=== PATIENT | male | born 1950 | race Caucasian/White ===

== ENCOUNTER 2017-06-01 10:20 | Day surgery (SDC) | payer OTHER ==
[2017-05-30 13:20] VITALS: BMI 31.9
[~2017-06-01 10:20] MED LIST: LACTATED RINGERS 1,000 ML IV SCH; LIDOCAINE 1% 20 ML VIAL (10MG/ML) FOR IV START INTRADERMA PRN
[2017-06-01 11:00] VITALS: RESP 16
[2017-06-01] MEDS ORDERED: LIDOCAINE 1% INJ 10MG/ML (20 ML MDV) ONE (12:18)
[2017-06-01] MEDS ORDERED: PROPOFOL 10 MG/ML 20 ML VIAL IV ONE (12:18)
--- NOTE | 2017-06-01 13:04 | P.PCN ---
Date of Procedure: 06/01/17 Procedure(s) Performed: Procedure: Colonoscopy and biopsy. Preoperative diagnosis: Screening for neoplasia. Postoperative diagnosis: Prominent IC valve, biopsied, otherwise, exam to the cecum within normal limits. Preparation: HalfLytely prep. Sedation: Was provided by anesthesia. Brief clinical history: The patient is 67-year-old male who is scheduled for this evaluation for screening for neoplasia because of history of polyps. The patient had several colonoscopies at the [facility], the last 2 of those were 1 year apart as the patient had polyps that were removed and their location was tattooed and were followed up yearly at the [facility]. The patient was advised a repeat colonoscopy which I performed March 2015 to follow-up on those areas and I found a polyp around the hepatic flexure which was snared. This evaluation is to follow-up because of his history of polyps. He has no abdominal complaints, bleeding or anemia. Procedure: With the patient on his left lateral decubitus position and after informed consent and adequate sedation, the perianal area was inspected and it did not show any fissures or fistulas. There were no masses felt on digital rectal examination. The Olympus CFQ 160L video colonoscope was then inserted in the rectum in the usual fashion and advanced to the cecum. The areas that were spotted before were noted in the distal sigmoid and the rectum and there was no residual polyps in those areas. Around the hepatic flexure there was no residual polyps. The mucosa appeared healthy. The ileocecal valve was somewhat prominent which I biopsied. I retroflexed endoscope in the rectum before the endoscope was withdrawn. Low-grade internal hemorrhoids were noted but those were not bleeding at the time of this exam. Disposition: The patient tolerated the procedure well. Plan: The patient was reassured. He will follow up with you as planned and I am recommending repeat colonoscopy in 5 years.
[2017-06-01 13:55] VITALS: BP 150/79; PULSE 54
== END 2017-06-01 14:03 | disposition home or self-care (01) ==
LOC: ORWHC2ENDO 10:20
DX: Z12.11 Encounter for screening for malignant neoplasm of colon (principal); K64.8 Other hemorrhoids; I10 Essential (primary) hypertension; E78.5 Hyperlipidemia, unspecified; F17.200 Nicotine dependence, unspecified, uncomplicated; K21.9 Gastro-esophageal reflux disease without esophagitis; M10.9 Gout, unspecified; Z86.010 Personal history of colon polyps; Z79.899 Other long term (current) drug therapy
CPT/HCPCS: 88305; 45380; J2001; J2704

== ENCOUNTER 2022-12-13 15:25 | Inpatient (IN) | payer OTHER, MEDICARE ==
[2022-12-13] MEDS ORDERED: HYDROmorphone 1 MG/ML 1 ML SYRINGE IVP STA (19:08)
[2022-12-13 20:08] LABS: Anisocytosis Slight; HCT 35.5 % (39.0-53.0); HGB 11.4 gm/dL (13.0-17.5); MCH 25.2 pg (25.0-35.0); MCV 78.7 fL (80.0-100.0); Mean Platelet Volume 7.9; Microcytosis Slight; Platelet Count 231 k/uL (150-450); RBC 4.51 m/uL (4.30-5.90); RDW 17.3 % (11.5-15.5); WBC 9.4 k/uL (3.8-10.6)
[2022-12-13 20:19] LABS: ALT 70 U/L (4-49); AST 165 U/L (17-59); African American GFR (CKD) 86 (>60 ml/min/1.73 sqM); Albumin 3.3 g/dL (3.5-5.0); Alkaline Phosphatase 56 U/L (38-126); Anion Gap 11 mmol/L; Blood Urea Nitrogen 43 mg/dL (9-20); Calcium 8.9 mg/dL (8.4-10.2); Carbon Dioxide 27 mmol/L (22-30); Chloride 91 mmol/L (98-107); Glucose 165 mg/dL (74-99); Lipase 182 U/L (23-300); Non-African American GFR(CKD) 75 (>60 ml/min/1.73 sqM); Potassium 4.2 mmol/L (3.5-5.1); Sodium 129 mmol/L (137-145); Total Bilirubin 0.8 mg/dL (0.2-1.3); Total Protein 6.1 g/dL (6.3-8.2)
[2022-12-13 21:13] LABS: Band Neutrophils % 10 %; Lymphocytes # (M) 0.09 k/uL (1.0-4.8); Monocytes # (M) 0.19 k/uL (0-1.0); Neutrophils % (M) 87 %; Nucleated Red Blood Cells 0 /100 WBC (0-0); Total Cells Counted 100
--- NOTE | 2022-12-13 21:47 | ED ---
General Adult HPI - General Chief complaint: Recheck/Abnormal Lab/Rx Stated complaint: Pain Time Seen by Provider: 12/13/22 16:50 Source: patient Mode of arrival: wheelchair - History of Present Illness Initial comments: 72-year-old male with past medical history of colon cancer, rheumatoid arthritis who presents to the emergency department with abdominal pain. States that he was hospitalized and discharged yesterday. He had surgery on December 05 for right colon resection due to colon cancer. He was discharged home on oxycodone for pain. States he has been taking the mediations as directed alternating with tylenol but contines to have significant pain which she feels is getting worse. He denies any fevers. He has been using a stool softener reports to soft stool. No black or bloody stool. He denies issues urinating. He did eat lunch without nausea or vomiting. He called the office who recommended that the patient be reevaluated. He denies cough, shortness of breath. No drainage from his surgical incision. No other alleviating, precipitating or modifying factors - Related Data Home Medications Medication Instructions Recorded Confirmed Metoprolol Tartrate [Lopressor] 50 mg PO BID 03/23/15 12/13/22 Naproxen [Naprosyn] 500 mg PO Q12HR PRN 05/30/17 12/13/22 Omeprazole 20 mg PO DAILY PRN 01/16/20 12/13/22 metFORMIN HCL [Glucophage] 1,000 mg PO BID 01/16/20 12/13/22 Gabapentin [Neurontin] 100 mg PO HS 12/06/22 12/13/22 Lisinopril-Hctz 20-12.5 mg 1 tab PO BID 12/06/22 12/13/22 [Zestoretic 20-12.5] Rosuvastatin Calcium 5 mg PO DAILY 12/06/22 12/13/22 Sildenafil Citrate [Viagra] 100 mg PO DAILY PRN 12/06/22 12/13/22 Vit C/E/Zn/Coppr/Lutein/Zeaxan 1 cap PO BID 12/06/22 12/13/22 [Preservision Areds 2 Softgel] allopurinoL 100 mg PO DAILY 12/06/22 12/13/22 amLODIPine [Norvasc] 10 mg PO DAILY 12/06/22 12/13/22 Previous Rx's Medication Instructions Recorded Acetaminophen Tab [Tylenol Tab] 650 mg PO Q4H PRN #30 tablet 12/12/22 oxyCODONE HCL [OxyIR] 5 mg PO Q6H PRN 3 Days #12 tab 12/12/22 Allergies Allergy/AdvReac Type Severity Reaction Status Date / Time [id number] Reductase AdvReac Muscle/joint Verified 12/13/22 19:28 Inhibitor pain. Currently taking Crestor. Review of Systems ROS Statement: Those systems with pertinent positive or pertinent negative responses have been documented in the HPI. ROS Other: All systems not noted in ROS Statement are negative. Past Medical History Past Medical History: GERD/Reflux, Hyperlipidemia, Hypertension, Rheumatoid Arthritis (RA) Additional Past Medical History / Comment(s): GOUT, HX OF COLON POLYPS. History of Any Multi-Drug Resistant Organisms: None Reported Past Surgical History: Appendectomy, Tonsillectomy Additional Past Surgical History / Comment(s): REPAIR OF FRACTURE AROUND RIGHT EYE. colon surgery 12/17 Past Anesthesia/Blood Transfusion Reactions: No Reported Reaction Past Psychological History: No Psychological Hx Reported Smoking Status: Former smoker Past Alcohol Use History: None Reported Past Drug Use History: None Reported - Past Family History Father Family Medical History: Diabetes Mellitus Brother(s) Family Medical History: Cancer Additional Family Medical History / Comment(s): STOMACH CANCER Mother Family Medical History: No Reported History General Exam General appearance: alert, in no apparent distress Head exam: Present: atraumatic, normocephalic, normal inspection Eye exam: Present: normal appearance, PERRL, EOMI. Absent: scleral icterus, conjunctival injection, periorbital swelling ENT exam: Present: normal exam, mucous membranes moist Neck exam: Present: normal inspection. Absent: tenderness, meningismus, lymphadenopathy Respiratory exam: Present: normal lung sounds bilaterally. Absent: respiratory distress, wheezes, rales, rhonchi, stridor Cardiovascular Exam: Present: regular rate, tachycardia, normal heart sounds. Absent: systolic murmur, diastolic murmur, rubs, gallop, clicks GI/Abdominal exam: Present: soft, tenderness (Generalized however only felt upon deep palpation. Midline abdominal incision is clean dry and intact. Nose running cellulitic changes. No peritoneal signs), normal bowel sounds. Absent: distended, guarding, rebound, rigid Extremities exam: Present: normal inspection, full ROM, normal capillary refill. Absent: tenderness, pedal edema, joint swelling, calf tenderness Back exam: Present: normal inspection Neurological exam: Present: alert, oriented X3, CN II-XII intact Psychiatric exam: Present: normal affect, normal mood Skin exam: Present: warm, dry, intact, normal color. Absent: rash Course Vital Signs 12/13/22 12/13/22 16:49 23:21 Temperature 98.6 F 100.2 F H Pulse Rate 120 H 118 H Respiratory 18 18 Rate Blood Pressure 106/61 130/58 O2 Sat by Pulse 96 93 L Oximetry Medical Decision Making - Medical Decision Making Was pt. sent in by a medical professional or institution (, PA, B[employer] CAR UNLOADER, urgent care, hospital, or skilled nursing...) When possible be specific @ -No Did you speak to anyone other than the patient for history (EMS, parent, family, police, friend...)? What history was obtained from this source @ -I spoke with the patient's Did you review nursing and triage notes (agree or disagree)? Why? @ -I reviewed and agree with nursing and triage notes Were old charts reviewed (outside hosp., previous admission, EMS record, old EKG, old radiological studies, urgent care reports/EKG's, skilled nursing records)? Report findings @ -I reviewed the patient's operative report from December 05. Also read discharge summary from yesterday Differential Diagnosis (chest pain, altered mental status, abdominal pain women, abdominal pain men, vaginal bleeding, weakness, fever, dyspnea, syncope, headache, dizziness, GI bleed, back pain, seizure, CVA, palpatations, mental health, musculoskeletal)? @ -Differential Abdominal Pain Men: Appendicitis, cholecystitis, diverticulosis, ischemic bowel, pancreatitis, hepatitis, UTI, gastroenteritis, AAA, incarcerated hernia, bowel obstruction, constipation, inflammatory bowel, hepatitis, peptic ulcer disease, splenic infarction, perforated viscus, testicular torsion, this is not meant to be an all-inclusive list EKG interpreted by me (3pts min.). @ -Not done X-rays interpreted by me (1pt min.). @ -None done CT interpreted by me (1pt min.). @ -None done U/S interpreted by me (1pt. min.). @ -None done What testing was considered but not performed or refused? (CT, X-rays, U/S, l abs)? Why? @ -X-ray, CT was considered. Spoke with Dr. Lenz who denied need for imaging What meds were considered but not given or refused? Why? @ -None Did you discuss the management of the patient with other professionals (professionals i.e. , PA, [employer]ER, lab, RT, psych nurse, social media campaign manager, cleaner housekeeping, teacher, intelligence officer basic, field nurse case manager)? Give summary @ -Spoke with Dr. Lenz who will admit patient for post-op evaluation Was smoking cessation discussed for >3mins.? @ -No Was critical care preformed (if so, how long)? @ -No Were there social determinants of health that impacted care today? How? ( Homelessness, low income, unemployed, alcoholism, drug addiction, transportation, low edu. Level, literacy, decrease access to med. care, prison, rehab)? @ -No Was there de-escalation of care discussed even if they declined (Discuss DNR or withdrawal of care, Hospice)? DNR status @ -No What co-morbidities impacted this encounter? (DM, HTN, Smoking, COPD, CAD, Cancer, CVA, ARF, Chemo, Hep., AIDS, mental health diagnosis, sleep apnea, morbid obesity)? @ -colon ca with recent right hemicoletomy Was patient admitted / discharged? Hospital course, mention meds given and route, prescriptions, significant lab abnormalities, going to OR and other pertinent info. @ -Upon arrival patient was placed into hallway 10. Thorough history and physical exam was performed. Patient is rating his pain as 8 out of 10. He does have some mild tenderness to palpation. IV is established and laboratory studies were conducted. He was given 1 mg of Dilaudid for pain. I discussed the case with Dr. Lenz. He does not feel that the patient needs imaging at this time. I requested to observe the patient due to his report of uncontrolled pain. Dr. Lenz was agreeable to observing the patient. Recommended fluids, pain control. Patient was agreeable to admission. He is currently awaiting a bed on the floor in stable condition After admission the patient does have some elevation in his temperature. I did add on a Covid swab, blood cultures. Admitting physician will be made aware of the change in the patient's vital signs Undiagnosed new problem with uncertain prognosis? @ -Yes Drug Therapy requiring intensive monitoring for toxicity (Heparin, Nitro, Insulin, Cardizem)? @ -No Were any procedures done? @ -No Diagnosis/symptom? @ -Acute abdominal pain, status post right hemicolectomy Acute, or Chronic, or Acute on Chronic? @ -Acute Uncomplicated (without systemic symptoms) or Complicated (systemic symptoms)? @ -complicated Side effects of treatment? @ -No Exacerbation, Progression, or Severe Exacerbation? @ -No Poses a threat to life or bodily function? How? (Chest pain, [place], [place], pneumonia, PE, COPD, DKA, ARF, appy, cholecystitis, CVA, Diverticulitis, Homicidal, Suicidal, threat to staff... and all critical care pts) @ -No - Lab Data Result diagrams: 12/13/22 19:34 12/13/22 19:34 Lab Results 12/13/22 12/13/22 12/13/22 Range/Units 19:34 19:34 19:34 WBC 9.4 (3.8-10.6) k/uL RBC 4.51 (4.30-5.90) m/uL Hgb 11.4 L (13.0-17.5) gm/dL Hct 35.5 L (39.0-53.0) % MCV 78.7 L (80.0-100.0) fL MCH 25.2 (25.0-35.0) pg MCHC 32.0 (31.0-37.0) g/dL RDW 17.3 H (11.5-15.5) % Plt Count 231 (150-450) k/uL MPV 7.9 Neutrophils % (Manual) 87 % Band Neuts % (Manual) 10 % Lymphocytes % (Manual) 1 % Monocytes % (Manual) 2 % Neutrophils # (Manual) 9.10 H (1.3-7.7) k/uL Lymphocytes # (Manual) 0.09 L (1.0-4.8) k/uL Monocytes # (Manual) 0.19 (0-1.0) k/uL Nucleated RBCs 0 (0-0) /100 WBC Manual Slide Review Performed Anisocytosis Slight Microcytosis Slight Sodium 129 L (137-145) mmol/L Potassium 4.2 (3.5-5.1) mmol/L Chloride 91 L (98-107) mmol/L Carbon Dioxide 27 (22-30) mmol/L Anion Gap 11 mmol/L BUN 43 H (9-20) mg/dL Creatinine 1.01 (0.66-1.25) mg/dL Est GFR (CKD-EPI)AfAm 86 (>60 ml/min/1.73 sqM) Est GFR (CKD-EPI)NonAf 75 (>60 ml/min/1.73 sqM) Glucose 165 H (74-99) mg/dL Lactic Ac Sepsis Rflx Plasma Lactic Acid James 2.3 H* (0.7-2.0) mmol/L Calcium 8.9 (8.4-10.2) mg/dL Total Bilirubin 0.8 (0.2-1.3) mg/dL AST 165 H (17-59) U/L ALT 70 H (4-49) U/L Alkaline Phosphatase 56 (38-126) U/L Total Protein 6.1 L (6.3-8.2) g/dL Albumin 3.3 L (3.5-5.0) g/dL Lipase 182 (23-300) U/L 12/13/22 Range/Units 20:21 WBC (3.8-10.6) k/uL RBC (4.30-5.90) m/uL Hgb (13.0-17.5) gm/dL Hct (39.0-53.0) % MCV (80.0-100.0) fL MCH (25.0-35.0) pg MCHC (31.0-37.0) g/dL RDW (11.5-15.5) % Plt Count (150-450) k/uL MPV Neutrophils % (Manual) % Band Neuts % (Manual) % Lymphocytes % (Manual) % Monocytes % (Manual) % Neutrophils # (Manual) (1.3-7.7) k/uL Lymphocytes # (Manual) (1.0-4.8) k/uL Monocytes # (Manual) (0-1.0) k/uL Nucleated RBCs (0-0) /100 WBC Manual Slide Review Anisocytosis Microcytosis Sodium (137-145) mmol/L Potassium (3.5-5.1) mmol/L Chloride (98-107) mmol/L Carbon Dioxide (22-30) mmol/L Anion Gap mmol/L BUN (9-20) mg/dL Creatinine (0.66-1.25) mg/dL Est GFR (CKD-EPI)AfAm (>60 ml/min/1.73 sqM) Est GFR (CKD-EPI)NonAf (>60 ml/min/1.73 sqM) Glucose (74-99) mg/dL Lactic Ac Sepsis Rflx Y Plasma Lactic Acid James (0.7-2.0) mmol/L Calcium (8.4-10.2) mg/dL Total Bilirubin (0.2-1.3) mg/dL AST (17-59) U/L ALT (4-49) U/L Alkaline Phosphatase (38-126) U/L Total Protein (6.3-8.2) g/dL Albumin (3.5-5.0) g/dL Lipase (23-300) U/L Disposition Clinical Impression: Abdominal pain, S/P colectomy, Lactic acidosis, Hyponatremia Disposition: ADMITTED IP TO THIS [facility] Condition: Stable Is patient prescribed a controlled substance at d/c from ED?: No Time of Disposition: 21:48 Decision to Admit Reason: Admit from EC Decision Date: 12/13/22 Decision Time: 21:48
[2022-12-13] MEDS ORDERED: NALOXONE 0.4 MG/ML 1 ML VIAL IV PRN (21:49)
[2022-12-13] MEDS ORDERED: SODIUM CHLORIDE 0.9% 500 ML 500 ML IV ONE (21:50)
[2022-12-13] MEDS: SODIUM CHLORIDE 0.9% 1,000 ML IV SCH (22:44)
[2022-12-13] MEDS: HYDROmorphone 1 MG/ML 1 ML SYRINGE IVP PRN (23:18)
[2022-12-14] MEDS ORDERED: ACETAMINOPHEN TAB 325 MG TAB PO PRN (00:36)
[2022-12-14] MEDS ORDERED: PANTOPRAZOLE 40 MG TABLET PO PRN (00:38)
[2022-12-14] MEDS: METOPROLOL TARTRATE 50 MG TAB PO SCH ×3 (01:32→21:25)
[2022-12-14] MEDS ORDERED: DILTIAZEM 5 MG/ML 5 ML VIAL IVP STA (05:57)
[2022-12-14] MEDS ORDERED: SODIUM CHLORIDE 0.9% 1,000 ML IV ONE ×5 (05:57→20:11)
[2022-12-14] MEDS ORDERED: DILTIAZEM 125 MG in SODIUM CHLORIDE 0.9% 100 ML IV SCH (06:00)
--- NOTE | 2022-12-14 07:36 | CT ---
EXAMINATION TYPE: CT abdomen pelvis wo con DATE OF EXAM: 12/14/2022 COMPARISON: None INDICATION: Post colon resection DLP: 649.8 mGycm, Automated exposure control for dose reduction was used. CONTRAST: 0 mL of Isovue 300. Study performed without Oral Contrast TECHNIQUE: Axial images were obtained from above the diaphragm to the pubic rami in the axial plane a t 5 mm thick sections. Reconstructed images are reviewed on the computer in the coronal plane. FINDINGS: Limited CT sections are obtained the lung bases. The lung bases are clear. There is a small hiatal hernia present CT ABDOMEN: Liver: Normal Spleen: Normal Pancreas: Normal Adrenal glands: The adrenal glands are normal. Gallbladder: Normal Kidneys: No masses are evident. No hydronephrosis is present. No cysts are present. No renal stone s are evident. Aorta: Vascular calcification is within the aorta. Inferior vena cava: Normal. CT PELVIS: Ascending colon resection is evident in the mid right abdomen. No stenosis is identified. A few scatt ered diverticuli are within the descending colon. There are dilated and fluid-filled small bowel loops within the abdomen compatible with obstruction. A zone of transition is not identified. The caliber of the small bowel loops does approach normal jus t inferior to the colonic anastomosis. Appendix: Not identified. This may be surgically absent. Urinary bladder: Normal. Genitourinary structures: Prostate is normal Osseous structures: No suspicious lytic or sclerotic lesions. IMPRESSION: 1. Dilated and fluid-filled small bowel loops extending to the right mid abdomen compatible with obs truction. Zone of transition is not identified although the small bowel loops approach more normal ca liber prior to the anastomosis. 2. Small hiatal hernia.
--- NOTE | 2022-12-14 08:43 | XR ---
EXAMINATION TYPE: XR chest 1V portable DATE OF EXAM: 12/14/2022 COMPARISON: 12/11/2022 INDICATION: New onset A. fib TECHNIQUE: Single frontal view of the chest is obtained. FINDINGS: The heart size is normal. The pulmonary vasculature is normal. The lungs are clear. Nasogastric tube tip is within the left upper quadrant of the abdomen. No free air within the abdomen is identified at this time. IMPRESSION: 1. No acute pulmonary process.
[2022-12-14 08:50] LABS: Glucose,Whole Blood 198 mg/dL (70-110)
[2022-12-14] MEDS ORDERED: PROCHLORPERAZINE INJ 10 MG/2 ML VIAL IVP PRN (08:53)
[2022-12-14] MEDS ORDERED: allopurinoL 100 MG TAB PO SCH (09:00)
[2022-12-14] MEDS ORDERED: amLODIPine 10 MG TAB PO SCH (09:00)
[2022-12-14] MEDS ORDERED: NON FORMULARY DRUG (Rosuvastatin Calcium [Rosuvastatin Calcium] 5 MG Tablet) PO SCH (09:00)
[2022-12-14] MEDS ORDERED: LISINOPRIL-HCTZ 20-12.5 MG 1 EACH TAB PO SCH (09:00)
--- NOTE | 2022-12-14 09:30 | P.GSHP ---
History of Present Illness H&P Date: 12/14/22 CHIEF COMPLAINT: Abdominal HISTORY OF PRESENT ILLNESS: This is a 72-year-old male who has a known history of colon cancer with a right colectomy on 12/05/22. He was discharged from the hospital 2 days ago on 12/12/2022. At that time he had been having bowel movements and flatus and pain was controlled. On Monday, the day after discharge patient reports increase in abdominal pain abdominal distention. He reports the pain does move to the back. He stopped having bowel movements. His last flatus was yesterday he believes. He's been having low-grade temps has been tachycardic. Computed tomography scan had just shown dilated small bowel loops consistent with a small bowel obstruction. Patient has NG tube placed with 300 mL of dark output. PAST MEDICAL HISTORY: GERD/Reflux, Hyperlipidemia, Hypertension, Rheumatoid Arthritis (RA), gout, colon polyps, PAST SURGICAL HISTORY: Appendectomy, right colectomy MEDICATIONS: See below ALLERGIES: See below SOCIAL HISTORY: No illicit drug use. REVIEW OF SYSTEMS: CONSTITUTIONAL: Denies fever or chills. HEENT: Denies blurred vision, vision changes, or eye pain. Denies hemoptysis CARDIOVASCULAR: Denies chest pain or pressure. RESPIRATORY: No shortness of breath. GASTROINTESTINAL: See HPI for pertinent findings HEMATOLOGIC: Denies bleeding disorders. GENITOURINARY: Denies any blood in urine or increased urinary frequency. SKIN: Denies pruitis. Denies rash. PHYSICAL EXAM: VITAL SIGNS: Reviewed GENERAL: Well-developed in no acute distress. ABDOMEN: Firm and distended. Midline incision with small area of saturation lo wer mid incisional line. Diffuse tenderness with palpation. NEUROLOGIC: Alert and oriented. Cranial nerves II through XII grossly intact. LABORATORY DATA: WBC 9.4 hgb 11.4 platelets 231 Sodium 129 potassium 4.2 creatinine 1.0 Lactic acid 2.5 IMAGING: Computed tomography scan abdomen and pelvis dilated and fluid-filled small bowel loops extending to the right mid abdomen compatible with obstruction. transition point is not identified. Small hiatal hernia. Chest x-ray no acute process ASSESSMENT: 1. High-grade Small bowel obstruction 2. History of colon cancer with recent right colectomy on 12/05/2022 3. Hyponatremia PLAN: -NG tube placed for decompression -Patient scheduled for exploratory laparotomy today with Dr. Bhesania -Keep patient nothing by mouth -Medicine service consulted for medical management -Continue IV fluids -Continue pain management and antiemetics Physician Cook Tortilla note has been reviewed by physician. Signing provider agrees with the documented findings, assessment, and plan of care. Past Medical History Past Medical History: GERD/Reflux, Hyperlipidemia, Hypertension, Rheumatoid Arthritis (RA) Additional Past Medical History / Comment(s): GOUT, HX OF COLON POLYPS. History of Any Multi-Drug Resistant Organisms: None Reported Past Surgical History: Appendectomy, Tonsillectomy Additional Past Surgical History / Comment(s): REPAIR OF FRACTURE AROUND RIGHT EYE. colon surgery 12/17 Past Anesthesia/Blood Transfusion Reactions: No Reported Reaction Past Psychological History: No Psychological Hx Reported Smoking Status: Former smoker Past Alcohol Use History: None Reported Past Drug Use History: None Reported - Past Family History Father Family Medical History: Diabetes Mellitus Brother(s) Family Medical History: Cancer Additional Family Medical History / Comment(s): STOMACH CANCER Mother Family Medical History: No Reported History Medications and Allergies Home Medications Medication Instructions Recorded Confirmed Type Metoprolol Tartrate [Lopressor] 50 mg PO BID 03/23/15 12/13/22 History Naproxen [Naprosyn] 500 mg PO Q12HR PRN 05/30/17 12/13/22 History Omeprazole 20 mg PO DAILY PRN 01/16/20 12/13/22 History metFORMIN HCL [Glucophage] 1,000 mg PO BID 01/16/20 12/13/22 History Gabapentin [Neurontin] 100 mg PO HS 12/06/22 12/13/22 History Lisinopril-Hctz 20-12.5 mg 1 tab PO BID 12/06/22 12/13/22 History [Zestoretic 20-12.5] Rosuvastatin Calcium 5 mg PO DAILY 12/06/22 12/13/22 History Sildenafil Citrate [Viagra] 100 mg PO DAILY PRN 12/06/22 12/13/22 History Vit C/E/Zn/Coppr/Lutein/Zeaxan 1 cap PO BID 12/06/22 12/13/22 History [Preservision Areds 2 Softgel] allopurinoL 100 mg PO DAILY 12/06/22 12/13/22 History amLODIPine [Norvasc] 10 mg PO DAILY 12/06/22 12/13/22 History Acetaminophen Tab [Tylenol Tab] 650 mg PO Q4H PRN #30 tablet 12/12/22 12/13/22 Rx oxyCODONE HCL [OxyIR] 5 mg PO Q6H PRN 3 Days #12 tab 12/12/22 12/13/22 Rx Allergies Allergy/AdvReac Type Severity Reaction Status Date / Time [id number] Reductase AdvReac Muscle/joint Verified 12/13/22 19:28 Inhibitor pain. Currently taking Crestor. Surgical - Exam Vital Signs Temp Pulse Resp BP Pulse Ox 98.6 F 120 H 18 106/61 96 12/13/22 16:49 12/13/22 16:49 12/13/22 16:49 12/13/22 16:49 12/13/22 16:49 Results - Labs 12/13/22 19:34 12/13/22 19:34 Abnormal Lab Results - Last 24 Hours (Table) 12/13/22 12/13/22 12/13/22 Range/Units 19:34 19:34 19:34 Hgb 11.4 L (13.0-17.5) gm/dL Hct 35.5 L (39.0-53.0) % MCV 78.7 L (80.0-100.0) fL RDW 17.3 H (11.5-15.5) % Neutrophils # (Manual) 9.10 H (1.3-7.7) k/uL Lymphocytes # (Manual) 0.09 L (1.0-4.8) k/uL Sodium 129 L (137-145) mmol/L Chloride 91 L (98-107) mmol/L BUN 43 H (9-20) mg/dL Glucose 165 H (74-99) mg/dL POC Glucose (mg/dL) (70-110) mg/dL Plasma Lactic Acid James 2.3 H* (0.7-2.0) mmol/L AST 165 H (17-59) U/L ALT 70 H (4-49) U/L Total Protein 6.1 L (6.3-8.2) g/dL Albumin 3.3 L (3.5-5.0) g/dL 12/13/22 12/14/22 12/14/22 Range/Units 22:35 02:06 08:48 Hgb (13.0-17.5) gm/dL Hct (39.0-53.0) % MCV (80.0-100.0) fL RDW (11.5-15.5) % Neutrophils # (Manual) (1.3-7.7) k/uL Lymphocytes # (Manual) (1.0-4.8) k/uL Sodium (137-145) mmol/L Chloride (98-107) mmol/L BUN (9-20) mg/dL Glucose (74-99) mg/dL POC Glucose (mg/dL) 198 H (70-110) mg/dL Plasma Lactic Acid James 2.3 H* 2.5 H* (0.7-2.0) mmol/L AST (17-59) U/L ALT (4-49) U/L Total Protein (6.3-8.2) g/dL Albumin (3.5-5.0) g/dL Diabetes panel 12/13/22 Range/Units 19:34 Sodium 129 L (137-145) mmol/L Potassium 4.2 (3.5-5.1) mmol/L Chloride 91 L (98-107) mmol/L Carbon Dioxide 27 (22-30) mmol/L BUN 43 H (9-20) mg/dL Creatinine 1.01 (0.66-1.25) mg/dL Glucose 165 H (74-99) mg/dL Calcium 8.9 (8.4-10.2) mg/dL AST 165 H (17-59) U/L ALT 70 H (4-49) U/L Alkaline Phosphatase 56 (38-126) U/L Total Protein 6.1 L (6.3-8.2) g/dL Albumin 3.3 L (3.5-5.0) g/dL Calcium panel 12/13/22 Range/Units 19:34 Calcium 8.9 (8.4-10.2) mg/dL Albumin 3.3 L (3.5-5.0) g/dL Pituitary panel 12/13/22 Range/Units 19:34 Sodium 129 L (137-145) mmol/L Potassium 4.2 (3.5-5.1) mmol/L Chloride 91 L (98-107) mmol/L Carbon Dioxide 27 (22-30) mmol/L BUN 43 H (9-20) mg/dL Creatinine 1.01 (0.66-1.25) mg/dL Glucose 165 H (74-99) mg/dL Calcium 8.9 (8.4-10.2) mg/dL Adrenal panel 12/13/22 Range/Units 19:34 Sodium 129 L (137-145) mmol/L Potassium 4.2 (3.5-5.1) mmol/L Chloride 91 L (98-107) mmol/L Carbon Dioxide 27 (22-30) mmol/L BUN 43 H (9-20) mg/dL Creatinine 1.01 (0.66-1.25) mg/dL Glucose 165 H (74-99) mg/dL Calcium 8.9 (8.4-10.2) mg/dL Total Bilirubin 0.8 (0.2-1.3) mg/dL AST 165 H (17-59) U/L ALT 70 H (4-49) U/L Alkaline Phosphatase 56 (38-126) U/L Total Protein 6.1 L (6.3-8.2) g/dL Albumin 3.3 L (3.5-5.0) g/dL
[2022-12-14] MEDS: PIPERACILLIN-TAZOBACTAM 3.375 GM in SODIUM CHLORIDE 0.9% 100 ML IVPB SCH ×3 (09:33→22:14)
[2022-12-14] MEDS: HYDROmorphone 1 MG/ML 1 ML SYRINGE IVP PRN (09:34)
[2022-12-14] MEDS: SODIUM CHLORIDE 0.9% 1,000 ML IV SCH ×3 (09:34→15:25)
--- NOTE | 2022-12-14 09:36 | P.HPIM ---
History of Present Illness H&P Date: 12/14/22 History of Presenting Illness: Patient is a very pleasant 72-year-old male with a past medical history of hypertension, ovd-vomnptt-jyrkqrcbv diabetes mellitus, hyperlipidemia, rheumatoid arthritis, and recently diagnosed colon cancer status post colectomy and repair of incisional hernia with partial omentectomy and lysis of adhesions completed by Dr. Lenz on 12/05/22. Patient reports that he was discharged on feeling great with normal bowel function. He then reported his last bowel movement was and he began developing lower abdominal pain/cramping radiating into his back on Monday morning. He reports loss of appetite but denies having any nausea or vomiting, chest pain, palpitations, shortness of breath, or experiencing any difficulties with her changes in his urinary function. Patient reports moderate abdominal distention and pain. Patient reports pain significantly worsening and unable to be controlled via oral pain medications he was discharged on and reports he called the surgeons office and was instructed to come to the emergency department for evaluation. Upon arrival to the emergency department patient underwent full evaluation and was found to have signs/symptoms of SIRS. Vital signs reviewed. Blood pressure 130/58, heart rate 118, respiratory rate 18, temperature 100.2F, and SpO2 of 93% on 4 L O2 via nasal cannula. Labs completed overnight and reviewed. CBC showing mild normocytic anemia with hemoglobin stable at 11.4 and otherwise normal findings with normal WBC count of 9.4.BMP revealing mild hyponatremia with sodium 129 and hypochloremia with chloride of 91 and prerenal azotemia with BUN of 43.liver profile showing elevated liver enzymes with AST of 165 and ALT of 70. Lipase normal findings at 182. Lactic acid 2.3. CT abdomen and pelvis completed showing dilated and fluid distended small bowel loops extending to the right mid abdomen compatible with obstruction. Patient admitted to general surgery team and we were consulted for medical management throughout hospitalization. We were initially called from nursing staff this morning stating concerns of possible new onset atrial flutter/fibrillation with RVR. Upon review of child monitor and EKG, pt appeared to be in sinus tach and no noted atrial arrythmias. EKG completed and reviewed showing sinus tachycardia at 112 bpm with right bundle branch block upon personal review and interpretation. This was also discussed with last scourer, Dr. Pulliam whom reported he was in agreement that this is sinus tachycardia and no signs of atrial flutter. Patient was however tachycardic, diaphoretic, and reported abdominal pain/distention extending into lower back. NG tube being inserted at this time for bowel decompression with return of dark brown gastric return and IV access being obtained. Patient to be medicated with Dilaudid and Zofran and provided with IV fluid bolus and antibiotics as ordered. Patient went without administration of IV fluids throughout the entire night secondary to difficult IV start and per RN did not received previous boluses that were ordered. Patient's lactate is elevated. Went to bedside and IV access was obtained, also placed order for stat midline placement as patient needs fluid bolus and antibiotics for treatment of his sepsis and tachycardia. Discussed with general surgery PA, pt to be taken for surgery this morning with Dr. Lenz. Review of systems: Pertinent positives and negatives as discussed in HPI, a complete review of s ystems was performed and all other systems are negative. Physical exam: Vital signs reviewed and stable. General: Nontoxic, no distress and appears stated age. Derm: Skin diaphoretic Head: Atraumatic, normocephalic and symmetric. Eyes: EOMs intact, no lid lag, and anicteric sclera Mouth: no lip lesions, mucus membranes moist Cardiovascular: Tachycardic rate with regular with normal S1S2, no murmur, positive posterior tibial pulses bilaterally, and cap refill < 2 seconds. Lungs: Respirations even, regular, and unlabored on room air. Lungs CTA bilaterally, no rhonchi, no rales, no wheezing, and no accessory muscle usage. Abdominal: Taut and distended, diffuse tenderness throughout. Surgical dressing midline abdomen clean, dry, and intact with minimal drainage show through Ext: ROM intact. No gross muscle atrophy, no edema, no contractures Neuro: Speech clear, face symmetrical and CN II-XII grossly intact with no noted focal neuro deficits Psych: Alert and oriented to person, place, time, and situation. Appropriate and pleasant affect. Assessment and Plan of Care: Patient is a 72-year-old recently diagnosed with colon cancer status post colectomy and repair of incisional hernia with partial omentectomy and lysis of adhesions completed by Dr. Lenz on 12/05/22. Pt reported last bowel movement being 12/08/22 and abdominal pain radiating into his back beginning on 12/09/22 and progressively worsening. SBO Severe Sepsis Lactic acidosis Sinus Tachycardia resulting from sepsis and elevated temp Colon cancer status post colectomy, repair of incisional hernia with partial omentectomy, and lysis of adhesions on 12/05/22 -Order placed for NG tube to low intermittent suction -Continuous Telemetry monitoring -IV fluid bolus followed by aggressive IV fluid hydration -IV antibiotics with Zosyn 3.375 g every 8 hours -GI prophylaxis with Protonix 40 mg IVP daily -Symptomatic care and pain management. -Follow up on blood cultures -Discussed plan of care with general surgery team, patient being taken for exploratory laparotomy later this morning for further evaluation of small bowel obstruction. Hypertension Patient to continue medication regimen with metoprolol 50 mg twice daily. Hyperlipidemia Patient to continue with pravastatin 40 mg daily. Qrj-ezmtjyv-idzrqsqbp diabetes mellitus Hold Glucophage and order placed for glycemic protocol with NovoLog sliding scale. Data reviewed: -Vital signs reviewed. Blood pressure 130/58, heart rate 118, respiratory rate 18, temperature 100.2F, and SpO2 of 93% on 4 L O2 via nasal cannula. -Labs completed overnight and reviewed. CBC showing mild normocytic anemia with hemoglobin stable at 11.4 and otherwise normal findings with normal WBC count of 9.4.BMP revealing mild hyponatremia with sodium 129 and hypochloremia with chloride of 91 and prerenal azotemia with BUN of 43.liver profile showing elevated liver enzymes with AST of 165 and ALT of 70. Lipase normal findings at 182. Lactic acid 2.3. Imaging reviewed: -CT abdomen and pelvis completed showing dilated and fluid distended small bowel loops extending to the right mid abdomen compatible with obstruction. Thank you for allowing us to participate in the care of this pleasant patient. Do not hesitate to contact us with questions. Someone can be reached from the [facility] hospitalist group all hours of the day at [phone] or via [employer]. Patient was seen independently by Nurse Practitioner. This document was prepared using [employer] dictation software. Please allow for errors in defective cigarette slitter while rare they do occur. Patient seen and examined independently. Patient was also seen by Tristan Aguila NP and case was discussed. I am in agreement with subjective, physical exam, assessment and plan as written above and amended below. See event note for my assessment in change in clinical status after surgery. Past Medical History Past Medical History: GERD/Reflux, Hyperlipidemia, Hypertension, Rheumatoid Arthritis (RA) Additional Past Medical History / Comment(s): GOUT, HX OF COLON POLYPS. History of Any Multi-Drug Resistant Organisms: None Reported Past Surgical History: Appendectomy, Tonsillectomy Additional Past Surgical History / Comment(s): REPAIR OF FRACTURE AROUND RIGHT EYE. colon surgery 12/17 Past Anesthesia/Blood Transfusion Reactions: No Reported Reaction Past Psychological History: No Psychological Hx Reported Smoking Status: Former smoker Past Alcohol Use History: None Reported Past Drug Use History: None Reported - Past Family History Father Family Medical History: Diabetes Mellitus Brother(s) Family Medical History: Cancer Additional Family Medical History / Comment(s): STOMACH CANCER Mother Family Medical History: No Reported History Medications and Allergies Home Medications Medication Instructions Recorded Confirmed Type Metoprolol Tartrate [Lopressor] 50 mg PO BID 03/23/15 12/13/22 History Naproxen [Naprosyn] 500 mg PO Q12HR PRN 05/30/17 12/13/22 History Omeprazole 20 mg PO DAILY PRN 01/16/20 12/13/22 History metFORMIN HCL [Glucophage] 1,000 mg PO BID 01/16/20 12/13/22 History Gabapentin [Neurontin] 100 mg PO HS 12/06/22 12/13/22 History Lisinopril-Hctz 20-12.5 mg 1 tab PO BID 12/06/22 12/13/22 History [Zestoretic 20-12.5] Rosuvastatin Calcium 5 mg PO DAILY 12/06/22 12/13/22 History Sildenafil Citrate [Viagra] 100 mg PO DAILY PRN 12/06/22 12/13/22 History Vit C/E/Zn/Coppr/Lutein/Zeaxan 1 cap PO BID 12/06/22 12/13/22 History [Preservision Areds 2 Softgel] allopurinoL 100 mg PO DAILY 12/06/22 12/13/22 History amLODIPine [Norvasc] 10 mg PO DAILY 12/06/22 12/13/22 History Acetaminophen Tab [Tylenol Tab] 650 mg PO Q4H PRN #30 tablet 12/12/22 12/13/22 Rx oxyCODONE HCL [OxyIR] 5 mg PO Q6H PRN 3 Days #12 tab 12/12/22 12/13/22 Rx Allergies Allergy/AdvReac Type Severity Reaction Status Date / Time Qwlhtjk-ECM-DrO Reductase AdvReac Muscle/joint Verified 12/13/22 19:28 Inhibitor pain. Currently taking Crestor. Physical Exam Osteopathic Statement: *. No significant issues noted on an osteopathic structural exam other than those noted in the History and Physical/Consult. Vitals: Vital Signs Temp Pulse Resp BP Pulse Ox 12/14/22 06:00 122 H 20 120/77 98 12/14/22 05:30 98.8 F 130 H 20 125/91 94 L 12/14/22 02:30 99.8 F H 12/14/22 01:30 100.1 F H 125 H 20 122/67 94 L 12/13/22 23:21 100.2 F H 118 H 18 130/58 93 L 12/13/22 16:49 98.6 F 120 H 18 106/61 96 Intake and Output 12/13/22 12/14/22 12/14/22 22:59 06:59 14:59 Other: Weight 83.915 kg Results CBC & Chem 7: 12/14/22 14:44 12/14/22 10:00 Labs: Abnormal Lab Results - Last 24 Hours (Table) 12/13/22 12/13/22 12/13/22 Range/Units 19:34 19:34 19:34 Hgb 11.4 L (13.0-17.5) gm/dL Hct 35.5 L (39.0-53.0) % MCV 78.7 L (80.0-100.0) fL RDW 17.3 H (11.5-15.5) % Neutrophils # (Manual) 9.10 H (1.3-7.7) k/uL Lymphocytes # (Manual) 0.09 L (1.0-4.8) k/uL Sodium 129 L (137-145) mmol/L Chloride 91 L (98-107) mmol/L BUN 43 H (9-20) mg/dL Glucose 165 H (74-99) mg/dL Plasma Lactic Acid James 2.3 H* (0.7-2.0) mmol/L AST 165 H (17-59) U/L ALT 70 H (4-49) U/L Total Protein 6.1 L (6.3-8.2) g/dL Albumin 3.3 L (3.5-5.0) g/dL 12/13/22 12/14/22 Range/Units 22:35 02:06 Hgb (13.0-17.5) gm/dL Hct (39.0-53.0) % MCV (80.0-100.0) fL RDW (11.5-15.5) % Neutrophils # (Manual) (1.3-7.7) k/uL Lymphocytes # (Manual) (1.0-4.8) k/uL Sodium (137-145) mmol/L Chloride (98-107) mmol/L BUN (9-20) mg/dL Glucose (74-99) mg/dL Plasma Lactic Acid James 2.3 H* 2.5 H* (0.7-2.0) mmol/L AST (17-59) U/L ALT (4-49) U/L Total Protein (6.3-8.2) g/dL Albumin (3.5-5.0) g/dL
[2022-12-14 10:26] LABS: Anisocytosis Slight; HCT 38.2 % (39.0-53.0); HGB 12.3 gm/dL (13.0-17.5); Hypochromasia Slight; MCH 25.6 pg (25.0-35.0); MCHC 32.1 g/dL (31.0-37.0); MCV 79.9 fL (80.0-100.0); Mean Platelet Volume 8.5; Microcytosis Slight; Platelet Count 219 k/uL (150-450); RBC 4.79 m/uL (4.30-5.90); RDW 17.5 % (11.5-15.5); WBC 17.4 k/uL (3.8-10.6)
[2022-12-14 10:27] LABS: African American GFR (CKD) 52 (>60 ml/min/1.73 sqM); Anion Gap 20 mmol/L; Blood Urea Nitrogen 50 mg/dL (9-20); Calcium 8.5 mg/dL (8.4-10.2); Carbon Dioxide 19 mmol/L (22-30); Chloride 98 mmol/L (98-107); Glucose 192 mg/dL (74-99); Non-African American GFR(CKD) 45 (>60 ml/min/1.73 sqM); Potassium 3.5 mmol/L (3.5-5.1); Sodium 137 mmol/L (137-145)
[2022-12-14] MEDS ORDERED: IV FLUID CONTINUATION 800 ML IV ONE (10:34)
[2022-12-14] MEDS ORDERED: IV FLUID CONTINUATION 900 ML IV ONE (10:34)
[2022-12-14 10:49] LABS: Glucose,Whole Blood 189 mg/dL (70-110)
[2022-12-14 10:59] LABS: Band Neutrophils % 9 %; Lymphocytes # (M) 0.35 k/uL (1.0-4.8); Neutrophils % (M) 89 %; Nucleated Red Blood Cells 0 /100 WBC (0-0); Total Cells Counted 100
[2022-12-14] MEDS ORDERED: HEPARIN SODIUM,PORCINE/PF 5,000 UNIT/0.5 ML SYRINGE SQ ONE (11:22)
[2022-12-14] MEDS ORDERED: PROPOFOL 10 MG/ML 20 ML VIAL IV ONE (12:08)
[2022-12-14] MEDS ORDERED: ROCURONIUM 10 MG/ML (5 ML VIAL) IV ONE (12:08)
[2022-12-14] MEDS ORDERED: PHENYLEPHRINE-0.9% NACL SYG 1,000 MCG/10 ML SYRINGE ONE (12:08)
[2022-12-14] MEDS ORDERED: SUGAMMADEX SODIUM 200 MG/2 ML SDV IV ONE (12:08)
[2022-12-14] MEDS ORDERED: LIDOCAINE 2% INJ 20 MG/ML (2 ML VIAL) ONE (12:08)
[2022-12-14] MEDS ORDERED: HYDROmorphone (PF) 1 MG/ML ONE (12:08)
[2022-12-14] MEDS ORDERED: SUCCINYLCHOLINE CHLORIDE 200 MG/10 ML VIAL IV ONE (12:08)
[2022-12-14] MEDS ORDERED: fentaNYL (PF) 50 MCG/ML 2 ML AMP ONE (12:08)
[2022-12-14 12:37] LABS: T4, Free (Free Thyroxine) 2.09 ng/dL (0.78-2.19)
[2022-12-14] MEDS ORDERED: LACTATED RINGERS 1,000 ML IV ONE ×2 (12:41)
[2022-12-14] MEDS ORDERED: SODIUM CHLORIDE 0.9% 500 ML 500 ML IV ONE (12:52)
--- NOTE | 2022-12-14 13:41 | P.OP ---
Date of Procedure: 12/14/22 Preoperative Diagnosis: Small bowel structure Postoperative Diagnosis: Small obstruction secondary to adhesions Procedure(s) Performed: Exploratory laparotomy Lysis of adhesion Ileocolonic anastomosis revision Partial omentectomy Anesthesia: FLASH Surgeon: João Lenz Estimated Blood Loss (ml): 25 Pathology: other (Omentum/bowel) Condition: stable Disposition: PACU Description of Procedure: The patient's placed on the operative table in supine position. He received general endotracheal tube anesthesia. His abdomen was prepped and draped usual sterile fashion. His ramin removed. With gentle traction skin was spread. The fascial stitch was exposed. The fascial stitch was cut. And then using traction the fascia was opened. The Bookwalter tract with wound. There was some ascites in the abdomen. This was aspirated. The small bowel was grossly dilated. Small bowel was run from the ligament of Treitz towards the right lower quadrant. And there was adhesive band located in the terminal ileum. This was lysed. This appeared to be causing obstruction. The anastomosis was visualized. There was evidence of inflammation and some infarcted omentum in the anastomosis. Due to the inflammatory changes incising redo the anastomosis. The small bowel was transected proximal to the anastomosis with a GI stapler. And then the colon was transected just distal to the anastomosis with a GI stapler. Using the Enseal device mesentery the bowel was divided. The specimen sent to pathology. The ischemic omentum was also divided with the Enseal device and sent to pathology. A [id number]-[id number] functional end-to-end stapled vessels and created using JACY and TA stapler. 3-0 GI silk sutures a crotch stitch. The abdomen was irrigated there is no bleeding seen. The fascia is closed loop #1 PDS suture. Skin was closed ramin. Patient top she will end he was sent to recovery room in stable condition.
[2022-12-14] MEDS ORDERED: NALOXONE 0.4 MG/ML 1 ML VIAL IV PRN (13:45)
[2022-12-14] MEDS ORDERED: ONDANSETRON 4 MG/2 ML VIAL IVP PRN (13:45)
[2022-12-14] MEDS ORDERED: HYDROmorphone 0.5 MG/0.5 ML SYRINGE IVP ONE ×2 (14:19→15:00)
[2022-12-14 15:11] LABS: ABG HCO3 19 mmol/L (21-25); ABG Oxygen Saturation 85.7 % (94-97); ABG PCO2 38 mmHg (35-45); ABG PH 7.31 (7.35-7.45); ABG TCO2 21 mmol/L (19-24); Allen Test Performed? Yes
[2022-12-14 15:12] LABS: ABG PO2 56 mmHg (83-108)
--- NOTE | 2022-12-14 15:15 | XR ---
EXAMINATION TYPE: XR chest 1V portable DATE OF EXAM: 12/14/2022 3:06 PM CLINICAL INDICATION:Male, 72 years old with history of shortness of breath; [facility] COMPARISON: Chest radiographs from 12/14/2022 TECHNIQUE: XR chest 1V portable Frontal view of the chest. FINDINGS: Lungs/Pleura: Low lung volumes are present. There is no evidence of pleural effusion, focal consolida tion, or pneumothorax. Pulmonary vascularity: Unremarkable. Heart/mediastinum: Cardiomediastinal silhouette is unremarkable. Musculoskeletal: No acute osseous pathology. Other findings: None Lines/Tubes: Nasogastric tube with its distal tip and side-port projecting under the diaphragm and projecting over the gastric lumen. IMPRESSION: Low lung volumes with a generalized hazy appearance which could represent atelectasis.
[2022-12-14 15:19] LABS: Anisocytosis Slight; HCT 39.3 % (39.0-53.0); HGB 12.1 gm/dL (13.0-17.5); Hypochromasia Moderate; MCH 25.3 pg (25.0-35.0); MCHC 30.8 g/dL (31.0-37.0); MCV 82.1 fL (80.0-100.0); Mean Platelet Volume 9.5; Platelet Count 159 k/uL (150-450); RBC 4.79 m/uL (4.30-5.90); RDW 17.5 % (11.5-15.5); WBC 20.9 k/uL (3.8-10.6)
[2022-12-14 15:40] LABS: Glucose,Whole Blood 166 mg/dL (70-110)
--- NOTE | 2022-12-14 16:10 | P.EN ---
Called to see patient Indication: Elevated lactic acid Patient seen and examined at bedside. In recovery. So continue by PACU nurse who is very concerned about the patient's overall appearance including his lactic acid of 8.6 prior to surgery. Patient with tachypnea and conversational dyspnea. Vital signs reviewed General: ill appaering, mild distress Cardiovascular: S1S2 tachy, no murmur, positive posterior tibial pulse bilateral, no edema, capillary refill less than 2 seconds Lungs: Ronchi bilateral, no rhonchi, no rales, no wheeze, no accessory muscle use Abdominal: soft, +tender to palpation, no guarding, no appreciable organomegaly, normal bowel sounds Psych: Alert, lethargic Additional Assessment: Lactic acidosis Acute hypoxic respiratory failure - stat CXR, CBC, lactic acid, and ABG - 0.9 NS 1 L bolus has received Imaging: CXR ordered and reviwed by myself and no acute process Data Review: lactic acid increased to 9.1 ABG with PaO2 56, HCO3 19 CBC with WBC 20 and HgB 12.1 Plan: - D/W Dr huerta and transfer to ICU
[2022-12-14 16:35] LABS: ABG Base Excess -10.7 mmol/L; ABG HCO3 15 mmol/L (21-25); ABG Oxygen Saturation 97.6 % (94-97); ABG PCO2 27 mmHg (35-45); ABG PH 7.35 (7.35-7.45); ABG PO2 112 mmHg (83-108); ABG TCO2 16 mmol/L (19-24)
[2022-12-14] MEDS ORDERED: SODIUM BICARB 8.4% 50 ML SYR (1 MEQ/ML) ONE ×2 (16:38→23:19)
[2022-12-14] MEDS ORDERED: SODIUM BICARB 8.4% 50 ML SYR (1 MEQ/ML) IV STA ×2 (17:01→21:49)
[2022-12-14] MEDS: ACETAMINOPHEN IV (For NPO) 1,000 MG in EMPTY BAG 1 BAG IVPB SCH ×3 (17:03→22:14)
[2022-12-14] MEDS ORDERED: DEXTROSE 5% IN WATER 1,000 ML with SODIUM BICARB (1 MEQ/ML) 150 ML IV SCH (17:15)
--- NOTE | 2022-12-14 17:21 | P.CNPUL ---
History of Present Illness Consult date: 12/14/22 Requesting physician: João Lenz Reason for consult: other Chief complaint: No bowel movement for the last 6 days History of present illness: This is a 72-year-old white male with history of hypertension, dih-dhkarwa-gvxskzuts diabetes, dyslipidemia, rheumatoid arthritis, patient was recently diagnosed with colon cancer and he underwent colectomy and repair of incisional hernia with partial omentectomy and lysis of adhesions completed by Dr. Lenz on 12/05/2022. Patient had a relatively uneventful postoperative course, and he was discharged on 12/12/2022. Patient was readmitted on 12/13/2022, presented to the ER with abdominal pain. Patient told the ER physician that he was discharged yesterday, and his surgery was December 05. Apparently the patient has not been noticing any bowel movements for the last few days, he had abdominal discomfort, and he was seen by Dr. Lenz on consultation again. He felt that the patient had high-grade small bowel obstruction and he was also hyponatremic. Today the patient was taken back to the OR, and he underwent lysis of adhesions and ileocolonic anastomosis revision. According to the operative report, the anastomosis site was inflamed and he felt that the patient had some infarcted omentum in the anastomosis. Due to the inflammatory changes patient underwent redo of the anastomosis. The ischemic omentum was also divided and resected. Patient underwent irrigation. And he was eventually transferred to recovery. In the recovery room, the patient had increased O2 requirement, he was noted to be short of breath, and his lactic acid was noted to be extremely high. ABG in recovery showed a pO2 of 56 pCO2 of 38 pH of 7.31 and he had a lactic acid of 9.1. Hence I recommended that the patient goes to the ICU he was given fluids boluses about 3 L. Patient will be started on antibiotics empirically and follow-up ABG after the patient was in the ICU and placed on BiPAP showed a pO2 of 112 pCO2 27 pH of 7.35 with a bicarb of 15. Hence the patient was given more amps of bicarb, and he will be placed on a bicarb drip. Chest x-ray showed mostly low lung volumes and atelectasis, but no clear-cut evidence of infiltrate. After the patient was transferred to the ICU, he had no good venous access, hence a right femoral triple-lumen catheter was placed, and a right femoral arterial line was also placed. And I updated the family on his condition clinically the patient seems to have abdominal sepsis and his acidosis is most likely secondary to ischemic changes noted intraoperatively by Dr. Lenz. At any rate patient will remain in the ICU tonight, and the family was made aware that his condition is critical and if he gets any worse he may end up intubated and mechanically ventilated. Review of Systems CONSTITUTIONAL: Denies fever or chills. HEENT: Denies blurred vision, vision changes, or eye pain. Denies hemoptysis CARDIOVASCULAR: Denies chest pain or pressure. RESPIRATORY: No shortness of breath. GASTROINTESTINAL: As noted in HPI HEMATOLOGIC: Denies bleeding disorders. GENITOURINARY: Denies any blood in urine or increased urinary frequency. SKIN: Denies pruitis. Denies rash. Past Medical History Past Medical History: GERD/Reflux, Hyperlipidemia, Hypertension, Rheumatoid Arthritis (RA) Additional Past Medical History / Comment(s): GOUT, HX OF COLON POLYPS. History of Any Multi-Drug Resistant Organisms: None Reported Past Surgical History: Appendectomy, Tonsillectomy Additional Past Surgical History / Comment(s): REPAIR OF FRACTURE AROUND RIGHT EYE. colon surgery 12/17 Past Anesthesia/Blood Transfusion Reactions: No Reported Reaction Past Psychological History: No Psychological Hx Reported Smoking Status: Former smoker Past Alcohol Use History: None Reported Past Drug Use History: None Reported - Past Family History Father Family Medical History: Diabetes Mellitus Brother(s) Family Medical History: Cancer Additional Family Medical History / Comment(s): STOMACH CANCER Mother Family Medical History: No Reported History Medications and Allergies Home Medications Medication Instructions Recorded Confirmed Type Metoprolol Tartrate [Lopressor] 50 mg PO BID 03/23/15 12/13/22 History Naproxen [Naprosyn] 500 mg PO Q12HR PRN 05/30/17 12/13/22 History Omeprazole 20 mg PO DAILY PRN 01/16/20 12/13/22 History metFORMIN HCL [Glucophage] 1,000 mg PO BID 01/16/20 12/13/22 History Gabapentin [Neurontin] 100 mg PO HS 12/06/22 12/13/22 History Lisinopril-Hctz 20-12.5 mg 1 tab PO BID 12/06/22 12/13/22 History [Zestoretic 20-12.5] Rosuvastatin Calcium 5 mg PO DAILY 12/06/22 12/13/22 History Sildenafil Citrate [Viagra] 100 mg PO DAILY PRN 12/06/22 12/13/22 History Vit C/E/Zn/Coppr/Lutein/Zeaxan 1 cap PO BID 12/06/22 12/13/22 History [Preservision Areds 2 Softgel] allopurinoL 100 mg PO DAILY 12/06/22 12/13/22 History amLODIPine [Norvasc] 10 mg PO DAILY 12/06/22 12/13/22 History Acetaminophen Tab [Tylenol Tab] 650 mg PO Q4H PRN #30 tablet 12/12/22 12/13/22 Rx oxyCODONE HCL [OxyIR] 5 mg PO Q6H PRN 3 Days #12 tab 12/12/22 12/13/22 Rx Allergies Allergy/AdvReac Type Severity Reaction Status Date / Time Lhtnyur-PSJ-ZjR Reductase AdvReac Muscle/joint Verified 12/13/22 19:28 Inhibitor pain. Currently taking Crestor. Physical Exam Vitals: Vital Signs Temp Pulse Pulse Pulse Resp BP BP 12/14/22 15:24 12/14/22 15:15 12/14/22 15:00 125 H 30 H 12/14/22 14:39 122 H 28 H 12/14/22 14:24 115 H 26 H 12/14/22 14:09 122 H 28 H 12/14/22 13:53 111 H 26 H 12/14/22 13:38 97.2 F L 117 H 26 H 12/14/22 10:41 97.4 F L 116 H 16 109/53 12/14/22 08:05 98.5 F 103 H 18 125/64 12/14/22 06:00 122 H 20 120/77 12/14/22 05:30 98.8 F 130 H 20 125/91 12/14/22 02:30 99.8 F H 12/14/22 01:30 100.1 F H 125 H 20 122/67 12/13/22 23:21 100.2 F H 118 H 18 130/58 BP Pulse Ox FiO2 12/14/22 15:24 100 12/14/22 15:15 100 12/14/22 15:00 137/61 88 L 12/14/22 14:39 131/66 90 L 12/14/22 14:24 93 L 12/14/22 14:09 143/71 93 L 12/14/22 13:53 127/67 94 L 12/14/22 13:38 124/80 98 12/14/22 10:41 90 L 12/14/22 08:05 93 L 12/14/22 06:00 98 12/14/22 05:30 94 L 12/14/22 02:30 12/14/22 01:30 94 L 12/13/22 23:21 93 L Intake and Output 12/14/22 12/14/22 12/14/22 06:59 14:59 22:59 Intake Total 2900 500 Output Total 1850 Balance 1050 500 Intake: IV 2900 500 Output: Gastric Drainage 1700 Urine 100 Estimated Blood Loss 50 Physical Exam: Revealed a 72-year-old white male, on BiPAP, noted to be slightly tachypneic and tachycardic with heart rate of 120 sinus tachycardia. HEENT: PERRLA, EOMI, nonicteric, chronic masses, no JVD. HEENT:[Neck is supple.] [No neck masses.] [No thyromegaly.] [No JVD.] Chest: [Clear throughout, no crackles, no rhonchi, no wheezes.] Cardiac Exam: Tachycardic. [Normal S1 and S2, no S3 gallop, no murmur.] Abdomen: Postsurgical slightly tender to palpation, no megaly, no rebound, slight guarding noted Extremities: [No clubbing, no edema, no cyanosis.] However lower extremities are noted to be slightly mottled. Neurological Exam: Patient is slightly lethargic, arousable, follows instructions, and seems to be a bit slow. Psychiatric: This normal mood, flat affect, normal mental status except for being a bit slow and slight lethargy noted Skin: Mottling of the skin noted in lower extremities and relatively diminished pulses but palpable Results - Laboratory Findings CBC and BMP: 12/14/22 14:44 12/14/22 10:00 ABG ABG pH 7.35 (7.35-7.45) 12/14/22 16:32 ABG pCO2 27 mmHg (35-45) L 12/14/22 16:32 ABG pO2 112 mmHg (83-108) H 12/14/22 16:32 ABG O2 Saturation 97.6 % (94-97) H 12/14/22 16:32 Abnormal lab findings: Abnormal Labs 12/13/22 12/13/22 12/13/22 19:34 19:34 19:34 WBC Hgb 11.4 L Hct 35.5 L MCV 78.7 L MCHC RDW 17.3 H Neutrophils # (Manual) 9.10 H Lymphocytes # (Manual) 0.09 L ABG pH ABG pCO2 ABG pO2 ABG HCO3 ABG Total CO2 ABG O2 Saturation Sodium 129 L Chloride 91 L Carbon Dioxide BUN 43 H Creatinine Glucose 165 H POC Glucose (mg/dL) Plasma Lactic Acid James 2.3 H* AST 165 H ALT 70 H Total Protein 6.1 L Albumin 3.3 L TSH 12/13/22 12/14/22 12/14/22 22:35 02:06 06:00 WBC Hgb Hct MCV MCHC RDW Neutrophils # (Manual) Lymphocytes # (Manual) ABG pH ABG pCO2 ABG pO2 ABG HCO3 ABG Total CO2 ABG O2 Saturation Sodium Chloride Carbon Dioxide BUN Creatinine Glucose POC Glucose (mg/dL) Plasma Lactic Acid James 2.3 H* 2.5 H* AST ALT Total Protein Albumin TSH 0.313 L 12/14/22 12/14/22 12/14/22 08:48 10:00 10:00 WBC 17.4 H Hgb 12.3 L Hct 38.2 L MCV 79.9 L MCHC RDW 17.5 H Neutrophils # (Manual) 17.00 H Lymphocytes # (Manual) 0.35 L ABG pH ABG pCO2 ABG pO2 ABG HCO3 ABG Total CO2 ABG O2 Saturation Sodium Chloride Carbon Dioxide 19 L BUN 50 H Creatinine 1.54 H Glucose 192 H POC Glucose (mg/dL) 198 H Plasma Lactic Acid James AST ALT Total Protein Albumin TSH 12/14/22 12/14/22 12/14/22 10:00 10:36 14:44 WBC Hgb Hct MCV MCHC RDW Neutrophils # (Manual) Lymphocytes # (Manual) ABG pH ABG pCO2 ABG pO2 ABG HCO3 ABG Total CO2 ABG O2 Saturation Sodium Chloride Carbon Dioxide BUN Creatinine Glucose POC Glucose (mg/dL) 189 H Plasma Lactic Acid James 8.6 H* 9.1 H* AST ALT Total Protein Albumin TSH 12/14/22 12/14/22 12/14/22 14:44 15:08 15:39 WBC 20.9 H Hgb 12.1 L Hct MCV MCHC 30.8 L RDW 17.5 H Neutrophils # (Manual) Lymphocytes # (Manual) ABG pH 7.31 L ABG pCO2 ABG pO2 56 L* ABG HCO3 19 L ABG Total CO2 ABG O2 Saturation 85.7 L Sodium Chloride Carbon Dioxide BUN Creatinine Glucose POC Glucose (mg/dL) 166 H Plasma Lactic Acid James AST ALT Total Protein Albumin TSH 12/14/22 16:32 WBC Hgb Hct MCV MCHC RDW Neutrophils # (Manual) Lymphocytes # (Manual) ABG pH ABG pCO2 27 L ABG pO2 112 H ABG HCO3 15 L ABG Total CO2 16 L ABG O2 Saturation 97.6 H Sodium Chloride Carbon Dioxide BUN Creatinine Glucose POC Glucose (mg/dL) Plasma Lactic Acid James AST ALT Total Protein Albumin TSH - Diagnostic Findings Additional studies: CT abdomen and pelvis on admission showed dilated fluid filled small bowel loops extending to the right mid abdomen compatible with obstruction. And he was also noted to have a small hiatal hernia Assessment and Plan Assessment: Impression: Acute abdominal sepsis secondary to small bowel obstruction and abnormalities noted at the anastomosis site according to the surgeon/intraoperative report. Status post lysis of adhesions and repair of the anastomosis from recent surgery Acute lactic acidosis secondary to sepsis and secondary to omental ischemia as noted in the intraoperative report by Dr. Lenz Sinus tachycardia secondary to sepsis Acute hypoxic respiratory failure secondary to sepsis and secondary to atelectasis as noted on chest x-ray. Recently diagnosed colon cancer and recent colectomy and repair of incisional hernia with partial omentectomy and lysis of adhesions 12/05/2022 Recommendation: Continue to monitor the patient in the ICU Continue fluids, patient was given 3 L of boluses of 0.9 normal saline Start patient on a bicarb drip and collapse of bicarb were given IV push Continue patient on BiPAP however, if condition gets any worse, patient may need to have intubation and mechanical ventilation but at least at this point I be lieve it is better to wait. As he may turnaround with fluids, antibiotics and with bicarb drip. Antibiotics/Zosyn for abdominal sepsis Resume home meds Continue to monitor daily electrolytes, and renal profile complete metabolic profile CBC Continue to monitor lactic acidosis and addressed accordingly We will continue to follow. Infectious disease to see her on consultation for abdominal sepsis. Patient is critically ill family was updated on his condition. Central line and arterial line were placed in the ICU. Time with Patient: Greater than 30
[2022-12-14] MEDS ORDERED: DEXTROSE 50% SYRINGE 50 ML IVP PRN ×2 (17:24)
[2022-12-14] MEDS ORDERED: INSULIN ASPART (NovoLOG) 100 UNIT/ML VIAL SQ SCH (17:30)
--- NOTE | 2022-12-14 17:52 | OP ---
OPERATIVE REPORT DATE OF SERVICE : PROCEDURE PERFORMED: Placement of right femoral triple-lumen catheter. PREOPERATIVE DIAGNOSES: Abdominal sepsis and status post exploratory laparotomy and lysis of adhesions. POSTOPERATIVE DIAGNOSES: Abdominal sepsis and status post exploratory laparotomy and lysis of adhesions. ANESTHESIA USED: 2 mL of 1% lidocaine. DESCRIPTION OF PROCEDURE: The patient was placed in a supine position. The right groin was prepared in a sterile fashion. Drapes were applied. The right femoral vein was easily cannulated after locally anesthetizing the right femoral region, and a guidewire was placed. The area around the guidewire was dilated. Then, a triple-lumen catheter was inserted over the guidewire, and the guidewire was removed. Good blood flow was noted in the 3 different ports. Line was secured using 3-0 silk sutures. MMODL / IJN: [id number] /
--- NOTE | 2022-12-14 17:52 | OP ---
OPERATIVE REPORT DATE OF SERVICE : PROCEDURE PERFORMED: Placement of right femoral arterial line. PREOPERATIVE DIAGNOSIS: Acute sepsis. POSTOPERATIVE DIAGNOSIS: Acute sepsis. ANESTHESIA USED: None deployed. DESCRIPTION OF PROCEDURE: The patient was placed in a supine position. The right groin was prepared in a sterile fashion, and drapes were applied. The right femoral artery was palpated, easily cannulated, and a guidewire was placed. A Cook femoral catheter was inserted over the guidewire, and the guidewire was removed. Good blood flow and good waveform were noted. No complications. Line was secured using 3-0 silk sutures. MMODL / IJN: [id number] /
[2022-12-14 18:02] LABS: Glucose,Whole Blood 126 mg/dL (70-110)
[2022-12-14] MEDS ORDERED: NOREPINEPHRINE 8 MG in SODIUM CHLORIDE 0.9% 250 ML IV SCH (18:15)
--- NOTE | 2022-12-14 19:01 | US ---
EXAMINATION TYPE: US venous doppler duplex LE DATE OF EXAM: 12/14/2022 5:49 PM COMPARISON: NONE CLINICAL INDICATION: Male, 72 years old with history of elevated d.dimer; elevated d dimer SIDE PERFORMED: Bilateral TECHNIQUE: The lower extremity deep venous system is examined utilizing real time linear array sonog todd with graded compression, doppler sonography and color-flow sonography. VESSELS IMAGED: Common Femoral Vein Deep Femoral Vein Greater Saphenous Vein * Femoral Vein Popliteal Vein Small Saphenous Vein * Proximal Calf Veins (* superficial vessels) Right Leg: Groin limited due to port in rt groin. No evidence for DVT in vessels visualized Left Leg: No evidence for DVT in vessels visualized. IMPRESSION: Grayscale, color doppler, spectral doppler imaging performed of the deep veins of the lo wer extremities. There is normal flow, compressibility, vascular waveforms.
[2022-12-14] MEDS ORDERED: HYDROCORTISONE SUCCINATE 100 MG/2 ML VIAL IV STA (20:09)
[2022-12-14] MEDS ORDERED: propofoL 100 ML IV ONE (20:09)
[2022-12-14] MEDS ORDERED: VASOPRESSIN 60 UNIT in SODIUM CHLORIDE 0.9% 150 ML IV SCH (20:15)
[2022-12-14 20:24] VITALS: BP 107/81
[2022-12-14] MEDS ORDERED: CHLORHEXIDINE GLUCONATE 15 ML CUP MUCOUS MEM SCH (21:00)
[2022-12-14] MEDS ORDERED: GABAPENTIN 100 MG CAP PO SCH (21:00)
--- NOTE | 2022-12-14 21:13 | XR ---
EXAMINATION TYPE: XR chest 1V portable DATE OF EXAM: 12/14/2022 8:46 PM CLINICAL INDICATION:Male, 72 years old with history of Tube placement; [facility] COMPARISON: Chest radiographs from 12/14/2022 TECHNIQUE: XR chest 1V portable Frontal view of the chest. FINDINGS: Lungs/Pleura: There is no evidence of pleural effusion, focal consolidation, or pneumothorax. Pulmonary vascularity: Unremarkable. Heart/mediastinum: Cardiomediastinal silhouette is unremarkable. Musculoskeletal: No acute osseous pathology. Other findings: None Lines/Tubes: Endotracheal tube with distal tip 2.8 cm above the henna. Nasogastric tube with side-port projecting over the distal esophagus. IMPRESSION: 1. Endotracheal tube in appropriate position. 2. Nasogastric tube side-port near the distal esophagus consider advancement of 6 cm for optimal cady cement.
[2022-12-14 21:20] LABS: Potassium 4.3 mmol/L (3.5-5.1)
[2022-12-14 21:23] VITALS: TEMP 97.4
[2022-12-14 21:27] LABS: ABG Base Excess -17.7 mmol/L; ABG HCO3 14 mmol/L (21-25); ABG Oxygen Saturation 90.5 % (94-97); ABG PCO2 58 mmHg (35-45); ABG PO2 89 mmHg (83-108); ABG TCO2 16 mmol/L (19-24); Allen Test Performed? Yes
[2022-12-14 21:30] LABS: ABG PH 6.99 (7.35-7.45)
[2022-12-14 22:09] VITALS: PULSE 94; RESP 21
[2022-12-14] MEDS ORDERED: EPINEPHrine 10 ML SYRINGE (0.1 MG/ML) ONE (23:19)
[2022-12-14 23:25] LABS: Glucose,Whole Blood 90 mg/dL (70-110)
[2022-12-14 23:42] LABS: ABG Base Excess -10.8 mmol/L; ABG HCO3 19 mmol/L (21-25); ABG Oxygen Saturation 77.3 % (94-97); ABG PCO2 59 mmHg (35-45); ABG TCO2 21 mmol/L (19-24); Allen Test Performed? Yes
[2022-12-14] MEDS ORDERED: CISATRACURIUM 200 MG in SODIUM CHLORIDE 0.9% 180 ML IV SCH (23:45)
[2022-12-14 23:46] LABS: ABG PH 7.11 (7.35-7.45); ABG PO2 54 mmHg (83-108)
[2022-12-14] MEDS ORDERED: CISATRACURIUM 2 MG/ML 5 ML VIAL IV ONE (23:49)
[2022-12-15] MEDS ORDERED: ARTIFICIAL TEARS-HYPROMELLOSE DROPS 15 ML BTL BOTH EYES SCH
[2022-12-15] MEDS ORDERED: IPRATROPIUM-ALBUTEROL 3 ML NEB INHALATION SCH
--- NOTE | 2022-12-15 00:10 | XR ---
EXAMINATION TYPE: XR chest 1V portable DATE OF EXAM: 12/14/2022 CLINICAL HISTORY: Post cardiac arrest. TECHNIQUE: Single AP portable semiupright view of the chest is obtained. COMPARISON: Chest x-ray from earlier today FINDINGS: Stable endotracheal and orogastric tubes. New left basilar opacity. Right lung remains clear. Cardiac silhouette size stable and within normal limits. Osseous structures are intact. IMPRESSION: New small left pleural effusion and associated left basilar atelectasis and/or developing acute infiltrate.
--- NOTE | 2022-12-15 01:30 | P.EN ---
At 2319 a CODE BLUE was called overhead, I was rounding in the intensive care unit and responded. The patient reportedly became hypotensive and had a cardiac arrest. Presenting rhythm was asystole. ACLS protocol was followed. Prior to this, the patient was severely acidotic, and I ordered 2 additional amps of sodium bicarb to be given. Patient's down time was estimated at 2 minutes. ROSC was initially achieved, with a rhythm of normal sinus. At this point, the patient was maxed on vasopressors. Including, norepinephrine infusing at 0.5 mcg/kg/m and Vasopressin infusing at physiological dose. 3 amps of sodium bicarbonate in D5W infusing at 75 ml/hr. A repeat ABG showed a pO2 of 54, pCO2 of 59, pH of 7.11. This was done on ventilator settings include assist control, respiratory rate 28, tidal volume 500, FiO2 100%, and a PEEP of 10. I did contact Dr. Obrien who made recommendations to paralyze the patient with Nimbex, increase the respiratory rate to 32 and PEEP to 14. In the meantime, general surgery was updated on the patient's change in status. Patient did undergo exploratory laparotomy, with lysis of adhesions, and ileocolonic anastomosis revision earlier that day. Abdomen was soft. OG tube had a large amount of dark brown drainage in the canister. Patient's was also updated, is on her way to the hospital. Dr. Matt from [facility] did also respond to the CODE BLUE. Repeat labs are still pending. Unfortunately, at 2354 the patient had a subsequent asystole cardiac arrest. After a prolonged resuscitation effort, we felt that the attempt was futile. The patient had remained asystole on monitor. Dr. aMtt was at bedside, and CPR was stopped. Please see code record for additional detail.
--- NOTE | 2022-12-15 02:30 | P.EN ---
Code Blue Note Initial CODE BLUE activated at 2319. Upon arrival at the scene, the patient had achieved ROSC. Chart was reviewed and case discussed with the RN and the BOAT OUTFITTER at the bedside. The patient who was admitted for abdominal pain, found to have SBO and severe sepsis subsequently underwent ex-lap with septic shock requiring pressors. The patient was given 2 ampules of sodium bicarbonate during the CODE BLUE. He subsequently had ROSC with sinus rhythm. He continued to require vasopressors. He subsequently had an additional cardiac arrest at 2354. Again arrived at the scene shortly after. ACLS protocol was performed with patient receiving 6 ampules of epinephrine with asystole on the monitor. CPR was halted after prolonged resuscitation effort at 0010. The patient's family was notified and the laundry aid also notified by the RN. Please refer to the code sheet for further details. Total time spent providing critical care for the patient: 35 minutes
[2022-12-15] MEDS ORDERED: ACETAMINOPHEN TAB 325 MG TAB PO PRN (06:00)
[2022-12-15] MEDS ORDERED: ENOXAPARIN 40 MG/0.4 ML SYRINGE SQ SCH (09:00)
[2022-12-15] MEDS ORDERED: PANTOPRAZOLE 40 MG/10 ML VIAL IV SCH (09:00)
--- NOTE | 2022-12-16 07:15 | CDI ---
documentation Clarification Form Date: 12/16/22 From: Sylvia Hartman Admit Date: 12/13/2022 09:50:00 PM Patient Name: Thomas Hummel Visit Number: [id number] Discharge Date: 12/15/2022 05:36:00 AM ATTENTION: The Clinical Documentation Specialists (CDI) and [facility] Coding Staff appreciate your assistance in clarifying documentation. Please respond to the clarification below the line at the bottom and electronically sign. The CDI & [facility] Coding staff will review the response and follow-up if needed. Please note: Queries are made part of the Legal Health Record. If you have any questions, please contact the author of this message via ITS. Dr. Génesis Matt,, Sepsis with septic shock is documented in the H&P, operative report and consult For each diagnosis, documentation must be clear to determine if the condition was present at the time of the patients inpatient admission or developed during the hospital stay. Additional clarification regarding the sepsis w septic shock is requested. History/Risk Factors: recent surgery for colon cancer, T2DM, RA Clinical Indicators: Lactic acid: 12/13-2.3 WBC: 12/14 (1000) 17.4 Neutrophils: 12/13-9.10 & 12/14-1700 T- 100.2 P- 120/118 R- 18 BP-106/61 O2 96/93/94 Treatment: IV fluid bolus, IV Zoysn, exploratory laparotomy Definition of Present on Admission (POA): A diagnosis present at the time the order for admission to inpatient status was written. Please clarify if the sepsis with septic shock was POA [ ] Y = Yes, the condition was present at the time of the order for inpatient admission. [ ] N = No, the condition was not present at the time of the order for inpatient admission. -- Patient met criteria for severe sepsis on admission, not for septic shock [ ] W = Clinically undetermined if the condition was present at the time of the order for inpatient admission. MTDD
--- NOTE | 2022-12-28 11:40 | P.DS ---
Providers Date of admission: 12/13/22 21:50 Expected date of discharge: 12/15/22 Attending physician: João Lenz Consults: 12/14/22 05:49 Consult Physician Stat Consulting Provider: Génesis Matt Consult Reason/Comments: medical management Do you want consulting provider notified?: Already Contacted 12/14/22 15:12 Consult Physician Stat Consulting Provider: Deirdre Obrien Consult Reason/Comments: ICU management Do you want consulting provider notified?: Already Contacted Primary care physician: [facility] Hospital Course: This a 72-year-old male who was readmitted to the hospital. Patient initially presents emergency room with complaints of some increased abdominal pain. Patient underwent CAT scan which showed possible small bowel obstruction. Patient underwent urgent laparotomy. He is found have small obstruction related to adhesions. Patient had a significant lactic acidosis. Patient was noted to the ICU postoperatively. Patient declined rapidly after being admitted to the ICU. Please see the data warehouse analyst note. Patient underwent cardiac arrest and in the foam fabricator of December 15. Patient was pronounced by the sound physician wildfire prevention specialist. Procedures: Exploratory laparotomy Patient Condition at Discharge: Critical Plan - Discharge Summary Discharge Rx Participant: No New Discharge Prescriptions: No Action Metoprolol Tartrate [Lopressor] 50 mg PO BID Naproxen [Naprosyn] 500 mg PO Q12HR PRN PRN Reason: Pain metFORMIN HCL [Glucophage] 1,000 mg PO BID Omeprazole 20 mg PO DAILY PRN PRN Reason: Heartburn Vit C/E/Zn/Coppr/Lutein/Zeaxan [Preservision Areds 2 Softgel] 1 cap PO BID Sildenafil Citrate [Viagra] 100 mg PO DAILY PRN PRN Reason: E.D. Rosuvastatin Calcium 5 mg PO DAILY allopurinoL 100 mg PO DAILY Lisinopril-Hctz 20-12.5 mg [Zestoretic 20-12.5] 1 tab PO BID Acetaminophen Tab [Tylenol Tab] 650 mg PO Q4H PRN #30 tablet PRN Reason: Pain amLODIPine [Norvasc] 10 mg PO DAILY Gabapentin [Neurontin] 100 mg PO HS oxyCODONE HCL [OxyIR] 5 mg PO Q6H PRN 3 Days #12 tab PRN Reason: Pain Discharge Medication List Metoprolol Tartrate [Lopressor] 50 mg PO BID 03/23/15 [History] Naproxen [Naprosyn] 500 mg PO Q12HR PRN 05/30/17 [History] Omeprazole 20 mg PO DAILY PRN 01/16/20 [History] metFORMIN HCL [Glucophage] 1,000 mg PO BID 01/16/20 [History] Gabapentin [Neurontin] 100 mg PO HS 12/06/22 [History] Lisinopril-Hctz 20-12.5 mg [Zestoretic 20-12.5] 1 tab PO BID 12/06/22 [History] Rosuvastatin Calcium 5 mg PO DAILY 12/06/22 [History] Sildenafil Citrate [Viagra] 100 mg PO DAILY PRN 12/06/22 [History] Vit C/E/Zn/Coppr/Lutein/Zeaxan [Preservision Areds 2 Softgel] 1 cap PO BID 12/06/22 [History] allopurinoL 100 mg PO DAILY 12/06/22 [History] amLODIPine [Norvasc] 10 mg PO DAILY 12/06/22 [History] Acetaminophen Tab [Tylenol Tab] 650 mg PO Q4H PRN #30 tablet 12/12/22 [Rx] oxyCODONE HCL [OxyIR] 5 mg PO Q6H PRN 3 Days #12 tab 12/12/22 [Rx] Follow up Appointment(s)/Referral(s): [facility] [NON-STAFF] - As Needed [facility] [Primary Care Provider] - 1-2 days Discharge Disposition: - Preliminary Cause of Preliminary Cause of : Cardiac arrest
--- NOTE | 2023-01-02 11:39 | CDI ---
Documentation Clarification Form Date: 12/16/22 From: Sylvia Hartman Admit Date: 12/13/2022 09:50:00 PM Patient Name: Thomas Hummel Visit Number: [id number] Discharge Date: 12/15/2022 05:36:00 AM ATTENTION: The Clinical Documentation Specialists (CDI) and [facility] Coding Staff appreciate your assistance in clarifying documentation. Please respond to the clarification below the line at the bottom and electronically sign. The CDI & [facility] Coding staff will review the response and follow-up if needed. Please note: Queries are made part of the Legal Health Record. If you have any questions, please contact the author of this message via ITS. Dr. João Lenz, Sepsis with septic shock is documented in the H&P, operative report and consult For each diagnosis, documentation must be clear to determine if the condition was present at the time of the patients inpatient admission or developed during the hospital stay. Additional clarification regarding the sepsis w septic shock is requested. History/Risk Factors: recent surgery for colon cancer, T2DM, RA Clinical Indicators: Lactic acid: 12/13-2.3 WBC: 12/14 (1000) 17.4 Neutrophils: 12/13-9.10 & 12/14-1700 T- 100.2 P- 120/118 R- 18 BP-106/61 O2 96/93/94 Treatment: IV fluid bolus, IV Zoysn, exploratory laparotomy Definition of Present on Admission (POA): A diagnosis present at the time the order for admission to inpatient status was written. Please clarify if the sepsis with septic shock was POA [ ] Y = Yes, the condition was present at the time of the order for inpatient admission. [ xx ] N = No, the condition was not present at the time of the order for inpatient admission. -- Patient met criteria for severe sepsis on admission, not for septic shock [ ] W = Clinically undetermined if the condition was present at the time of the order for inpatient admission. MTDD
== END 2022-12-15 05:36 | disposition expired | DRG 853 ==
LOC: EC 15:25 → 6NMEDSUR 21:50 → OBSVTOIN 21:50 → 6NMEDSUR 23:39 → 3SCARD 12-14 05:31 → 2SICU 12-14 14:51
PROVIDERS: ADMIT Surgery; ATTEND Surgery
PROC: 5A1935Z Respiratory Ventilation, Less than 24 Consecutive Hours (ICD-10-PCS; 2022-12-14)
PROC: 0BH17EZ Insertion of Endotracheal Airway into Trachea, Via Natural or Artificial Opening (ICD-10-PCS; 2022-12-14)
PROC: 5A09357 Assistance with Respiratory Ventilation, Less than 24 Consecutive Hours, Continuous Positive Airway Pressure (ICD-10-PCS; 2022-12-14)
PROC: 04HY32Z Insertion of Monitoring Device into Lower Artery, Percutaneous Approach (ICD-10-PCS; 2022-12-14)
PROC: 4A133B1 Monitoring of Arterial Pressure, Peripheral, Percutaneous Approach (ICD-10-PCS; 2022-12-14)
PROC: 4A133J1 Monitoring of Arterial Pulse, Peripheral, Percutaneous Approach (ICD-10-PCS; 2022-12-14)
PROC: 06HY33Z Insertion of Infusion Device into Lower Vein, Percutaneous Approach (ICD-10-PCS; 2022-12-14)
PROC: 3E043XZ Introduction of Vasopressor into Central Vein, Percutaneous Approach (ICD-10-PCS; 2022-12-14)
PROC: 0D9670Z Drainage of Stomach with Drainage Device, Via Natural or Artificial Opening (ICD-10-PCS; 2022-12-14)
PROC: 0DBU0ZZ Excision of Omentum, Open Approach (ICD-10-PCS; principal; 2022-12-14 08:30)
PROC: 0D1B0ZN Bypass Ileum to Sigmoid Colon, Open Approach (ICD-10-PCS; principal; 2022-12-14 08:30)
PROC: 5A12012 Performance of Cardiac Output, Single, Manual (ICD-10-PCS; 2022-12-14 11:30)
DX: A41.9 Sepsis, unspecified organism (principal); J96.01 Acute respiratory failure with hypoxia; K55.029 Acute infarction of small intestine, extent unspecified; R65.21 Severe sepsis with septic shock; K56.50 Intestinal adhesions [bands], unspecified as to partial versus complete obstruction; E87.21 Acute metabolic acidosis; E87.1 Hypo-osmolality and hyponatremia; C18.9 Malignant neoplasm of colon, unspecified; J98.11 Atelectasis; I46.9 Cardiac arrest, cause unspecified; E11.9 Type 2 diabetes mellitus without complications; M06.9 Rheumatoid arthritis, unspecified; D63.0 Anemia in neoplastic disease; E87.8 Other disorders of electrolyte and fluid balance, not elsewhere classified; Z20.822 Contact with and (suspected) exposure to COVID-19; E78.5 Hyperlipidemia, unspecified; I10 Essential (primary) hypertension; K21.9 Gastro-esophageal reflux disease without esophagitis; M10.9 Gout, unspecified; I45.10 Unspecified right bundle-branch block; R74.8 Abnormal levels of other serum enzymes; Z79.84 Long term (current) use of oral hypoglycemic drugs; Z79.899 Other long term (current) drug therapy; Z87.891 Personal history of nicotine dependence; Z88.8 Allergy status to other drugs, medicaments and biological substances
CPT/HCPCS: 36410; 36415; 36600; 71045; 74176; 76937; 80048; 80053; 82533; 82805; 83605; 83690; 84132; 84439; 84443; 85025; 85027; 85379; 86850; 86900; 86901; 87040; 87636; 88305; 88307; 92950; 93970; 94002; 94660; 96361; 96374; 96375; 99285